=== PATIENT | male | born 1965 | race Caucasian/White ===

== ENCOUNTER 2017-09-05 16:14 | Emergency (ER) | payer OTHER ==
[~2017-09-05] VITALS: Ht 182.9 cm; Wt 88.7 kg
[2017-09-05] MEDS ORDERED: ASPIRIN 81 MG TABLET CHEW ONE (17:29)
[2017-09-05] MEDS ORDERED: MAALOX/HYOSCYAMINE/LIDOCAINE 45 ML BTL ONE (17:29)
[2017-09-05 17:35] LABS: BASOPHILS # (AUTO) 0.03 x10^3/uL (0-0.1); BASOPHILS % (AUTO) 0 % (0-1); EOSINOPHILS # (AUTO) 0.05 x10^3/uL (0-0.4); EOSINOPHILS % (AUTO) 1 % (1-7); LYMPHOCYTES # (AUTO) 1.57 x10^3/uL (1-3.4); LYMPHOCYTES % (AUTO) 18 % (22-44); MD NO; MEAN CORPUSCULAR HGB CONC 34.9 g/dL (33.2-36.2); MEAN CORPUSCULAR VOLUME 94.5 fL (81-97); MEAN PLATELET VOLUME 7.6 fL (7.4-10.4); MONOCYTES # (AUTO) 0.51 x10^3/uL (0.2-0.8); MONOCYTES % (AUTO) 6 % (2-9); NEUTROPHILS # (AUTO) 6.72 x10^3/uL (1.8-6.8); NEUTROPHILS % (AUTO) 76 % (42-75); PLATELET COUNT 241 x10^3/uL (130-400); RED BLOOD COUNT 4.67 x10^6/uL (4.38-5.82); RED CELL DISTRIBUTION WIDTH 12.6 % (9.4-14.8)
[2017-09-05 17:49] LABS: ALBUMIN 3.7 g/dL (3.4-5.0); ANION GAP 6 mmol/L (5-15); CALCIUM 8.5 mg/dL (8.5-10.1); CHLORIDE 107 mmol/L (98-107)
[2017-09-05 17:54] LABS: CREATININE 1.08 mg/dL (0.7-1.3); TROPONIN I < 0.015 ng/mL (0.000-0.045)
[2017-09-05] MEDS ORDERED: MAALOX/HYOSCYAMINE/LIDOCAINE 45 ML BTL PO ONE (18:00)
[2017-09-05] MEDS ORDERED: ASPIRIN 81 MG TABLET CHEW PO ONE (18:00)
[2017-09-05] MEDS ORDERED: SODIUM CHLORIDE FLUSH 10ML SYR IVF ONE (18:30)
[2017-09-05 19:01] VITALS: BP 117/73
== END 2017-09-05 19:03 | disposition home or self-care (01) ==
LOC: ED 18:57
DX: R07.89 Other chest pain (principal); K21.9 Gastro-esophageal reflux disease without esophagitis
CPT/HCPCS: 36415; 71046; 80048; 82040; 84484; 85025; 93005; 99285

== ENCOUNTER 2019-11-01 20:33 | Emergency (ER) | payer OTHER ==
[~2019-11-01] VITALS: Ht 180.3 cm; Wt 88.4 kg
[2019-11-01] MEDS ORDERED: ESOM20CA PO (20:44)
--- NOTE | 2019-11-01 21:52 | NUR ---
First contact with patient: Patient presents to ER c/o L sided, non radiating chest pressure. Hx of this pressure; feels same as before but does not resolve with nexium. PULIDO x1 day. Lack of taste "like when you're sick and everything tastes like cardboard." Cramping in lats into back when moving from side to side; "same cramps as you'd get in your calves." Patient is in NAD. REspirations even and unlabored.
[2019-11-01 21:54] LABS: BASOPHILS # (AUTO) 0.03 x10^3/uL (0-0.1); BASOPHILS % (AUTO) 0 % (0-1); EOSINOPHILS # (AUTO) 0.08 x10^3/uL (0-0.4); EOSINOPHILS % (AUTO) 1 % (1-7); LYMPHOCYTES # (AUTO) 1.51 x10^3/uL (1-3.4); LYMPHOCYTES % (AUTO) 15 % (22-44); MD NO; MEAN CORPUSCULAR HGB CONC 34.6 g/dL (33.2-36.2); MEAN CORPUSCULAR VOLUME 95.3 fL (81-97); MEAN PLATELET VOLUME 7.5 fL (7.4-10.4); MONOCYTES # (AUTO) 1.02 x10^3/uL (0.2-0.8); MONOCYTES % (AUTO) 10 % (2-9); NEUTROPHILS # (AUTO) 7.34 x10^3/uL (1.8-6.8); NEUTROPHILS % (AUTO) 74 % (42-75); PLATELET COUNT 237 x10^3/uL (130-400)
[2019-11-01] MEDS ORDERED: MAALOX/HYOSCYAMINE/LIDOCAINE 45 ML BTL PO ONE (22:00)
[2019-11-01] MEDS ORDERED: MAALOX/HYOSCYAMINE/LIDOCAINE 45 ML BTL ONE (22:00)
[2019-11-01 22:03] LABS: ALANINE AMINOTRANSFERASE 37 U/L (12-78); ALBUMIN 3.8 g/dL (3.4-5.0); ANION GAP 8 mmol/L (5-15); CHLORIDE 101 mmol/L (98-107); CREATININE 1.11 mg/dL (0.7-1.3)
[2019-11-01 22:08] LABS: ALKALINE PHOSPHATASE 84 U/L (45-117); BILIRUBIN,TOTAL 0.9 mg/dL (0.2-1.0); TOTAL PROTEIN 8.4 g/dL (6.4-8.2); TROPONIN I < 0.015 ng/mL (0.000-0.045)
[2019-11-01 23:24] VITALS: BP 144/88
== END 2019-11-01 23:26 | disposition home or self-care (01) ==
LOC: ED 23:20
DX: Z03.818 Encounter for observation for suspected exposure to other biological agents ruled out (principal); R07.9 Chest pain, unspecified; R06.00 Dyspnea, unspecified; J02.9 Acute pharyngitis, unspecified; M54.6 Pain in thoracic spine; R00.0 Tachycardia, unspecified; K21.9 Gastro-esophageal reflux disease without esophagitis
CPT/HCPCS: 36415; 71045; 80053; 84484; 85025; 85379; 93005; 99285; U0001

== ENCOUNTER 2019-11-02 00:28 | Emergency (ER) | payer SELFPAY ==
[~2019-11-02] VITALS: Ht 180.3 cm; Wt 88.6 kg
[~2019-11-02 00:28] MED LIST: ESOM20CA PO
[2019-11-02 00:31] VITALS: BP 131/92
--- NOTE | 2019-11-02 01:01 | NUR ---
PT TO ROOM FROM LOBBY
[2019-11-02] MEDS ORDERED: DEXAMETHASONE 4 MG TABLET PO ONE (01:30)
[2019-11-02] MEDS ORDERED: LORazepam 1MG TABLET PO ONE (01:30)
[2019-11-02] MEDS ORDERED: DIPHENHYDRAMINE 25 MG CAPSULE PO ONE (01:30)
[2019-11-02] MEDS ORDERED: DIPH,PERTUSS(ACELL),TET VAC/PF 0.5 ML IM-VACC ONE ×2 (01:30→01:33)
[2019-11-02] MEDS ORDERED: DEXAMETHASONE 4 MG TABLET ONE (01:32)
[2019-11-02] MEDS ORDERED: DIPHENHYDRAMINE 25 MG CAPSULE ONE (01:32)
[2019-11-02] MEDS ORDERED: LORazepam 1MG TABLET ONE (01:32)
--- NOTE | 2019-11-02 01:39 | NUR ---
PT MEDICATED PER EMAR. 5 RIGHTS ADDRESSED.
--- NOTE | 2019-11-02 02:35 | NUR ---
Break RN: Patient to be discharged. Awaiting discharge instructions.
--- NOTE | 2019-11-02 03:06 | NUR ---
REPORT FROM DANY VALDOVINOS. ASSUMING CARE AT THIS TIME.
--- NOTE | 2019-11-02 03:07 | NUR ---
REPORT TO DANY SMITH
== END 2019-11-02 03:15 | disposition home or self-care (01) ==
LOC: ED 01:28
DX: J02.8 Acute pharyngitis due to other specified organisms (principal); B97.89 Other viral agents as the cause of diseases classified elsewhere; R25.2 Cramp and spasm; R51 Headache; H53.8 Other visual disturbances; K21.9 Gastro-esophageal reflux disease without esophagitis
CPT/HCPCS: 70450; 87081; 87880; 90471; 90715; 99284; Q0163